=== PATIENT | male | born 1995 | race Two or more races ===

== ENCOUNTER 2018-03-18 03:27 | Emergency (ER) | payer SELFPAY ==
[2018-03-18] MEDS ORDERED: Tdap Vaccine 0.5 ml Vial (10-64 yrs) IM ONE ×2 (04:27→05:14)
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
[2018-03-18] MEDS ORDERED: Sodium Chloride 0.9% 1,000 ML IV STA (07:50)
[2018-03-18 08:18] VITALS: TEMP 97.9
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
[2018-03-18 13:35] VITALS: BP 127/75; PULSE 63; RESP 18
[2018-03-18 19:24] VITALS: O2SAT 96
== END 2018-03-18 13:20 | disposition home or self-care (01) ==
LOC: H.ER 03:27
DX: S01.81XA Laceration without foreign body of other part of head, initial encounter (principal); S02.0XXA Fracture of vault of skull, initial encounter for closed fracture; S02.2XXA Fracture of nasal bones, initial encounter for closed fracture; S02.19XA Other fracture of base of skull, initial encounter for closed fracture; S01.21XA Laceration without foreign body of nose, initial encounter; F10.129 Alcohol abuse with intoxication, unspecified; H05.89 Other disorders of orbit; S09.90XA Unspecified injury of head, initial encounter; Y04.2XXA Assault by strike against or bumped into by another person, initial encounter
CPT/HCPCS: 70450; 70486; 90471; 90715; 96361; 96374; 96375; 99283; J1885; J2405; J7030